=== PATIENT | female | born 1995 | race Caucasian/White ===

== ENCOUNTER → 2020-08-01 | Outpatient (CLI) | payer BC, OTHER ==
[~2020-08-01] MED LIST: GAS-X125 MG PO; PRENATAL VITAM1 EAC3 PO; PROBIOTIC1 EAC1 PO; SINGULAIR10 MG PO; TUMS DUAL ACTI1 EACH PO; VALTREX 500 MG500 MG PO; ZYRTEC10 MG PO
[2020-08-01 11:47] LABS: HEMOGLOBIN 10.9 gm/dl (12.3-15.3); RED BLOOD COUNT 3.35 M/UL (4.00-5.10); WHITE BLOOD COUNT 11.7 K/UL (4.5-11.0)
== END ==
LOC: LAB 10:42
PROVIDERS: Internal Medicine Hematology & Oncology
DX: Z14.01 Asymptomatic hemophilia A carrier (principal)
CPT/HCPCS: 36415; 85025; 85240; 85250; 85610; 85730

== ENCOUNTER 2020-10-14 16:10 | Observation (INO) | payer BC, OTHER ==
[~2020-10-14] VITALS: Ht 172.7 cm; Wt 86.2 kg
[2020-10-14 16:59] LABS: HEMOGLOBIN 9.4 gm/dl (12.3-15.3); RED BLOOD COUNT 3.12 M/UL (4.00-5.10)
[2020-10-14] MEDS ORDERED: VALTREX 500 MG500 MG PO (18:20)
[2020-10-14] MEDS ORDERED: SINGULAIR10 MG PO (18:21)
[2020-10-14] MEDS ORDERED: ZYRTEC10 MG PO (18:21)
[2020-10-14] MEDS ORDERED: PROBIOTIC1 EAC1 PO (18:22)
[2020-10-14] MEDS ORDERED: PRENATAL VITAM1 EAC3 PO (18:22)
[2020-10-14] MEDS ORDERED: GAS-X125 MG PO (18:24)
[2020-10-14] MEDS ORDERED: TUMS DUAL ACTI1 EACH PO (18:24)
== END 2020-10-14 22:21 | disposition other institution (70) ==
LOC: GENOP 16:10 → OB 16:29
PROVIDERS: ADMIT Obstetrics & Gynecology
DX: O99.113 Other diseases of the blood and blood-forming organs and certain disorders involving the immune mechanism complicating pregnancy, third trimester (principal); D67 Hereditary factor IX deficiency; Z14.8 Genetic carrier of other disease; O26.43 Herpes gestationis, third trimester; Z88.0 Allergy status to penicillin; Z88.1 Allergy status to other antibiotic agents; Z88.5 Allergy status to narcotic agent; Z91.018 Allergy to other foods; Z3A.39 39 weeks gestation of pregnancy; Z20.822 Contact with and (suspected) exposure to COVID-19; Z79.899 Other long term (current) drug therapy
CPT/HCPCS: 36415; 81001; 85025; G0378; U0002